=== PATIENT | female | born 1985 | race Two or more races ===

== ENCOUNTER 2021-11-07 07:04 | Outpatient (REF) | payer OTHER, SELFPAY ==
[2021-11-07 08:18] LABS: MANUAL DIFF FLAG NO
[2021-11-07 08:33] LABS: Basophils Percent Auto 0.3 % (0-2); Eosinophils Absolute Auto 0.2 X10*3/uL (0.0-0.4); Eosinophils Percent Auto 1.7 % (0-4); Hematocrit 45.4 % (37.0-47.0); Hemoglobin 14.5 g/dl (12.0-16.0); Imm Gran Abs Auto 0.01 X10*3/uL (0.00-0.03); Imm Gran Pct Auto 0.1 % (0.0-0.4); Lymphocytes Absolute Auto 2.2 X10*3/uL (1.2-4.9); Lymphocytes Percent Auto 25.5 % (20-40); Mean Corpuscular HGB Conc 31.9 g/dl (31.0-35.0); Mean Corpuscular Hemoglobin 28.7 pg (27.0-33.0); Mean Corpuscular Volume 89.7 fL (80.0-98.0); Monocytes Absolute Auto 0.4 X10*3/uL (0.1-1.2); Neutrophils Percent Auto 68.4 % (45-73); Platelet Count 233 X10*3/uL (160-400); Red Blood Count 5.06 X10*6/uL (4.20-5.50); Red Cell Distribution Width 12.2 % (11.0-16.0); White Blood Count 8.7 X10*3/uL (4.8-10.8)
[2021-11-07 09:03] LABS: Alanine Aminotransferase 91 U/L (0-31); Albumin Level 4.2 g/dL (3.5-5.0); Alkaline Phosphatase 95 U/L (39-117); Anion Gap 11 (12-20); Aspartate Amino Transferase 59 U/L (5-31); Bilirubin Total 0.7 mg/dL (0.0-1.0); Blood Urea Nitrogen 14 mg/dL (9-16); Calcium 9.5 mg/dL (8.4-10.2); Carbon Dioxide 25 mmol/L (22-29); Chloride 105 mmol/L (96-108); Cholesterol 172 mg/dL; Estimated Glomerular Filt Rate > 60; Gamma Glutamyl Transpeptidase 37 U/L (7-33); Glucose Fasting 182 mg/dL (60-99); HDL Cholesterol 36 mg/dL; LDL Cholesterol Calculated 113 mg/dl; Potassium 4.3 mmol/L (3.3-5.1); Sodium 137 mmol/L (135-145); Total Protein 7.5 g/dL (6.5-8.0); Triglycerides 117 mg/dL
[2021-11-07 09:24] LABS: Thyroid Stimulating Hormone 2.39 uIU/mL (0.32-4.0)
[2021-11-07 09:51] LABS: Creatinine Urine 187.09 mg/dL; Microalbum/Creatinine Ratio Ur 32.6 ug/mg cr
[2021-11-08 14:31] LABS: Anti Nuclear Antibody Screen NEGATIVE (NEGATIVE)
[2021-11-10 13:21] LABS: Alpha Fetoprotein 2.5 ng/mL
[2021-11-11 15:11] LABS: Mitochondrial Antibodies NEGATIVE (NEGATIVE)
[2021-11-12 13:21] LABS: Smooth Muscle Antibody <20 U (<20)
[2021-11-12 15:52] LABS: Glutamic acid decarboxylase Ab <5 IU/mL (<5)
[2021-11-15 22:57] LABS: Insulin Auto Antibody <0.4 U/mL (<0.4)
== END 2021-11-07 07:05 | disposition home or self-care (01) ==
LOC: HO.LAB 07:04
PROVIDERS: PCP Internal Medicine; Referring Provider Internal Medicine; Visit Provider Nurse Practitioner
DX: Z00.00 Encounter for general adult medical examination without abnormal findings (principal); E66.9 Obesity, unspecified; E11.9 Type 2 diabetes mellitus without complications; C91.01 Acute lymphoblastic leukemia, in remission; D64.9 Anemia, unspecified; R74.01 Elevation of levels of liver transaminase levels
CPT/HCPCS: 36415; 80053; 80061; 82043; 82105; 82977; 84443; 85025; 86015; 86038; 86039; 86255; 86256; 86337; 86341; 99202

== ENCOUNTER → 2021-11-14 13:57 | Outpatient (BNVA) | payer OTHER, SELFPAY | PROVIDERS: PCP Internal Medicine; Visit Provider Internal Medicine Endocrinology, Diabetes & Metabolism | DX: E11.65 Type 2 diabetes mellitus with hyperglycemia (principal) | CPT/HCPCS: 82947; 99202 ==

== ENCOUNTER 2021-12-24 09:01 | Outpatient (REF) | payer OTHER, SELFPAY ==
[2021-12-24 14:02] LABS: CT PCR NOT DETECTED (Not Detect.); NG PCR NOT DETECTED (Not Detect.)
[2021-12-27 14:45] LABS: HPV mRNA E6/E7 rflx Not Detected (Not Detected)
== END 2021-12-24 09:02 | disposition home or self-care (01) ==
LOC: HO.LAB 09:01
PROVIDERS: PCP Internal Medicine; Visit Provider Advanced Practice Midwife
DX: Z01.419 Encounter for gynecological examination (general) (routine) without abnormal findings (principal); Z11.51 Encounter for screening for human papillomavirus (HPV); Z11.3 Encounter for screening for infections with a predominantly sexual mode of transmission; Z11.8 Encounter for screening for other infectious and parasitic diseases; C91.01 Acute lymphoblastic leukemia, in remission; E11.9 Type 2 diabetes mellitus without complications; E66.3 Overweight; Z68.36 Body mass index [BMI] 36.0-36.9, adult
CPT/HCPCS: 87491; 87591; 87624; 88142

== ENCOUNTER → 2022-02-17 14:32 | Outpatient (BNVA) | payer OTHER, SELFPAY | PROVIDERS: PCP Internal Medicine; Visit Provider Internal Medicine Endocrinology, Diabetes & Metabolism | DX: E11.65 Type 2 diabetes mellitus with hyperglycemia (principal); Z79.84 Long term (current) use of oral hypoglycemic drugs | CPT/HCPCS: 82947; 99212 ==

== ENCOUNTER 2022-04-02 20:18 | Emergency (ER) | payer OTHER, SELFPAY ==
[2022-04-02 21:13] VITALS: BP 153/105; PULSE 95; RESP 16; TEMP 36.5; O2SAT 99; BMI 37.3
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
[2022-04-02] MEDS: Cyclobenzaprine HCl 10 MG TABLET PO (22:21)
[2022-04-02] MEDS: Ibuprofen 600 MG TABLET PO (22:21)
== END 2022-04-02 22:41 | disposition home or self-care (01) ==
PROVIDERS: Emergency Provider Emergency Medicine; PCP Internal Medicine
DX: Z04.1 Encounter for examination and observation following transport accident (principal); M54.6 Pain in thoracic spine
CPT/HCPCS: 99283; 99284

== ENCOUNTER → 2022-06-11 14:03 | Outpatient (BNVA) | payer OTHER, SELFPAY | PROVIDERS: PCP Internal Medicine; Visit Provider Registered Nurse Diabetes Educator | DX: E11.65 Type 2 diabetes mellitus with hyperglycemia (principal) | CPT/HCPCS: 99211 ==

== ENCOUNTER 2022-07-15 08:00 | Outpatient (REF) | payer OTHER, SELFPAY ==
[2022-07-15 09:02] LABS: Alanine Aminotransferase 39 U/L (0-31); Albumin Level 4.1 g/dL (3.5-5.0); Alkaline Phosphatase 76 U/L (39-117); Anion Gap 12 (12-20); Aspartate Amino Transferase 29 U/L (5-31); Bilirubin Total 0.7 mg/dL (0.0-1.0); Blood Urea Nitrogen 16 mg/dL (9-16); Calcium 9.2 mg/dL (8.4-10.2); Carbon Dioxide 26 mmol/L (22-29); Chloride 105 mmol/L (96-108); Cholesterol 121 mg/dL; Estimated Glomerular Filt Rate > 60; Glucose Fasting 128 mg/dL (60-99); HDL Cholesterol 37 mg/dL; LDL Cholesterol Calculated 71 mg/dl; Potassium 4.4 mmol/L (3.3-5.1); Sodium 139 mmol/L (135-145); Triglycerides 66 mg/dL
[2022-07-15 09:29] LABS: Estimated Average Glucose 120 mg/dL; Hemoglobin A1c % 5.8 %
[2022-07-15 10:02] LABS: Vitamin D 25-OH Total 29.7 ng/mL (>30)
[2022-07-15 10:28] LABS: Creatinine Urine 226.96 mg/dL; Microalbum/Creatinine Ratio Ur 10.1 ug/mg cr
== END 2022-07-15 08:01 | disposition home or self-care (01) ==
LOC: HO.LAB 08:00
PROVIDERS: PCP Internal Medicine; Visit Provider Internal Medicine
DX: E55.9 Vitamin D deficiency, unspecified (principal); E78.5 Hyperlipidemia, unspecified; E11.40 Type 2 diabetes mellitus with diabetic neuropathy, unspecified; E11.65 Type 2 diabetes mellitus with hyperglycemia
CPT/HCPCS: 36415; 80053; 80061; 82043; 82306; 83036

== ENCOUNTER → 2022-07-16 14:06 | Outpatient (BNVA) | payer OTHER, SELFPAY | PROVIDERS: PCP Internal Medicine; Visit Provider Registered Nurse Diabetes Educator | DX: E11.65 Type 2 diabetes mellitus with hyperglycemia (principal) | CPT/HCPCS: 99211 ==

== ENCOUNTER 2023-10-19 08:48 | Outpatient (AMB) | payer OTHER, SELFPAY ==
--- NOTE | 2023-10-19 09:16 | A.OFFVIS_ITS ---
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 Accompanied by: Self / Same As Patient Allergies No Known Allergies Allergy (Verified 10/28/22 09:34) HPI Comprehensive Diabetes Asmnt Most Recent Diabetes Results: Microalb/Creat Ratio 10.1 ug/mg cr 07/15/22 Cholesterol 121 mg/dL 07/15/22 HDL Cholesterol 37 mg/dL 07/15/22 Triglycerides 66 mg/dL 07/15/22 Creatinine 0.78 mg/dL (0.5-1.4) 07/15/22 Blood Urea Nitrogen 16 mg/dL (9-16) 07/15/22 Sodium 139 mmol/L (135-145) 07/15/22 Potassium 4.4 mmol/L (3.3-5.1) 07/15/22 Chloride 105 mmol/L (96-108) 07/15/22 Carbon Dioxide 26 mmol/L (22-29) 07/15/22 Calcium 9.2 mg/dL (8.4-10.2) 07/15/22 AST 29 U/L (5-31) 07/15/22 ALT 39 U/L (0-31) H 07/15/22 Total Protein 7.0 g/dL (6.5-8.0) 07/15/22 Albumin 4.1 g/dL (3.5-5.0) 07/15/22 [facility] Medical History Acute lymphocytic leukemia in remission Diabetes mellitus Elevated blood pressure reading Hyperlipidemia LDL goal <70 Mild intermittent asthma in adult without complication Obesity, Class II, BMI 35-39.9, isolated Physical exam Skin lesion Transaminitis Surgical History History of biopsy Family History Mother HIV disease Father HIV disease Social History Housing: Apartment Alcohol intake: current Alcohol intake frequency: holidays/special occasions only Alcohol type: hard liquor Patient Tobacco Use Status: Never used Tobacco e-Cigarette/Vaping Use: Never Used Second Hand Smoke Exposure: No service: No Current occupational status: employed Current occupational exposures/hazards: No Sexual orientation: Straight/Heterosexual Gender identity: Female Cognitive needs: No Hearing needs: No Vision needs: No Assessment & Plan Assessment & Plan (1) Diabetes mellitus: Code(s): E11.9 - Type 2 diabetes mellitus without complications Qualifiers: Diabetes mellitus type: type 2 Diabetes mellitus retirement insulin use: without retirement use Diabetes mellitus complication status: with hyperglycemia Qualified Code(s): E11.65 - Type 2 diabetes mellitus with hyperglycemia Plan: Learning objectives: The patient was provided with verbal and written education on the following topics as outlined below. The patient met all learning objectives and was able to verbalize understanding and provide teach back of education topics discussed . The patient was provided with the opportunity to ask questions and all questions were answered. Patient Assessment Assess patient education level/literacy/barriers Patient questions/concerns, patient did not bring meter to today's visit. Patient reports she has not been able to obtain Trulicity 1.5 mg for approximately 2 months. Patient is here today to discuss alternatives to Trulicity Discussed with patient action of Ozempic 0.25 mg, Mounjaro 2.5 mg, discussed with patient common side effects. Recommended she discuss medication changes including increasing metformin 500 mg b.i.d. to a 1000 mg b.i.d. at next visit with PCP Exercise Medical clearance Effect of exercise on blood sugar Start slowly and gradually increase pace/duration over time Goal amount of exercise Checking blood glucose/have a source of carbs with you Medications (If applicable) * Name of medication * Dosing/administration instructions * Mechanism of action * Potential side effects * Potential adverse reaction and appropriate treatment * Review onset, peak, duration Assess for concerns re: insurance coverage, cost, barriers to compliance Insulin/Injectables (If applicable) * Storage/care of insulin * Injection sites * Site rotation * Onset, peak, duration * Drawing up insulin * Injecting insulin/other injectables * Sharps disposal Continuous blood glucose monitoring (if applicable) Hypoglycemia and Hyperglycemia * Signs and symptoms * Causes * Treatment * Preventing hypoglycemia * When to seek medical attention Medical alert bracelet Lifestyle * Work * Travel * Stress management * Problem solving Know your goals * A1C * Blood sugar targets * Blood pressure * Cholesterol/LDL Urine microalbumin New Goal:? Patient will have A1c drawn at PCP in October 2023 Educational Materials: The patient was provided with the following written educational materials: A ADA diabetes screening recommendations, target goal handouts in Urdu Patient Response to instructions: Comprehension of Instructions: good Readiness to make changes: Contemplation How confident they feel about making changes: Good Patient Instructions: Incluir actividad diaria regular. ADA recomienda 30 minutos de ejercicio 5 d?as a la semana. P?rdida de peso, hable con el PCP o el cardi?logo antes de comenzar un nuevo plan. Mida el nivel de az?car en la april seg?n las indicaciones; Ayuno y comida m?s jarad de 2hpp. Observe las tendencias en los resultados. Utilice los resultados y eval?e c?mo los alimentos, la actividad f?kaur y los medicamentos afectan los resultados de az?car en la april. Lleve el gluc?metro o CGM a la pr?xima visita. Conocer los medicamentos para la diabetes, man acci?n, los efectos secundarios, la eficacia, la toxicidad, la dosis prescrita, el momento y la frecuencia de administraci?n apropiados, el efecto de las dosis olvidadas y retrasadas y las instrucciones de almacenamiento, viaje y seguridad. T?cnicas de resoluci?n de problemas para el seguimiento de episodios de hipo/hiperglucemia y tratamientos. Reducir los comportamientos de reducci?n de riesgos, dejar de fumar, ex?menes regulares de ojos, pies y dentales. Coding Level of Care Code Est Pt Level 1 (21634) Diagnoses Type 2 diabetes mellitus with hyperglycemia, without long-term current use of insulin E11.65 Diabetes mellitus type: type 2 Diabetes mellitus long term care administrator insulin use: without retirement use Diabetes mellitus complication status: with hyperglycemia
== END 2023-10-19 09:18 | disposition home or self-care (01) ==
PROVIDERS: PCP Internal Medicine; Visit Provider Registered Nurse Diabetes Educator
DX: E11.65 Type 2 diabetes mellitus with hyperglycemia (principal)

== ENCOUNTER → 2023-10-19 08:48 | Outpatient (BNVA) | payer OTHER, SELFPAY | PROVIDERS: PCP Internal Medicine; Visit Provider Registered Nurse Diabetes Educator | DX: E11.65 Type 2 diabetes mellitus with hyperglycemia (principal) | CPT/HCPCS: 99211 ==

== ENCOUNTER 2023-11-04 08:27 | Outpatient (AMB) | payer OTHER, SELFPAY ==
[2023-11-04 08:41] VITALS: BP 122/84; BMI 38.6
--- NOTE | 2023-11-04 08:41 | MHC.PC.OV ---
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 Accompanied by: Self / Same As Patient Allergies No Known Allergies Allergy (Verified 11/04/23 08:48) Medication List - Last Reconciled 11/04/23 by Lidia Allan MD albuterol sulfate 90 mcg/actuation (ProAir RespiClick) 2 inhalations inhalation Q6H PRN 30 days albuterol sulfate 2.5 mg (3 mL) inhalation Q4-6H PRN 30 days atorvastatin 10 mg PO BEDTIME 90 days blood sugar diagnostic (FreeStyle Lite Strips) Use 1 test strip once a day blood-glucose meter (FreeStyle Lite Meter kit) As directed dulaglutide (Trulicity) 1.5 mg (0.5 mL) subcut QWEEK lancets (FreeStyle Lancets) Use 1 lancet once a day lisinopril 2.5 mg PO DAILY 90 days metformin 500 mg PO BID 90 days multivitamin 1 tab PO DAILY nebulizers (AeroEclipse II Nebulizer) As directed Ventolin HFA 90 mcg/actuation (albuterol sulfate) 2 puffs inhalation Q6H PRN 30 days NS Tobacco use date assessed: 11/04/23 Dental Screening Dental Screen Date: 11/04/23 Did you have a dental visit in the last 12 months?: Yes Did you have a dental problem in the last 6 months where you did not have access to dental care?: No Was dental information given to patient?: Patient has dentist HPI HPI Comments History of Present Illness Details This is a 38-year-old female with diabetes mellitus type 2 and acute lymphocytic leukemia in remission since 18/08 that comes for her physical exam. A1c not on goal and she has been out of Trulicity for about 2 months. She has been using Trulicity for about a year. I will increase metformin and start her on Mounjaro. Diabetic eye exam was August 2023 and showed no diabetic retinopathy as per patient. Last Pap smear was 2021 and was normal. Leukemia is follow by Hematology-Oncology. She does not know what type of treatment did she have while she had it. She is obese with a BMI of 38.6 and declines weight loss surgery. Was advised to diet and exercise. [facility] Medical History (Updated 11/04/23 @ 08:58 by Lidia Allan MD) Hyperlipidemia LDL goal <70 Diabetes mellitus Physical exam Transaminitis Mild intermittent asthma in adult without complication Skin lesion Elevated blood pressure reading Acute lymphocytic leukemia in remission Obesity, Class II, BMI 35-39.9, isolated Surgical History History of biopsy Family History Mother HIV disease Father HIV disease Social History Housing: Apartment Alcohol intake: current Alcohol intake frequency: holidays/special occasions only Alcohol type: hard liquor Patient Tobacco Use Status: Never used Tobacco e-Cigarette/Vaping Use: Never Used Second Hand Smoke Exposure: No service: No Current occupational status: employed Current occupational exposures/hazards: No Sexual orientation: Straight/Heterosexual Gender identity: Female Cognitive needs: No Hearing needs: No Vision needs: No Questionnaire PHQ-9 Over the last 2 weeks, how often have you been bothered by any of the following problems? 1. Little interest or pleasure in doing things: not at all 2. Feeling down, depressed, or hopeless: not at all 3. Trouble falling or staying asleep, or sleeping too much: not at all 4. Feeling tired or having little energy: not at all 5. Poor appetite or overeating: not at all 6. Feeling bad about yourself - or that you are a failure or have let yourself or your family down: not at all 7. Trouble concentrating on things, such as reading the newspaper or watching television: not at all 8. Moving or speaking so slowly that other people could have noticed. Or the opposite - being so fidgety or restless that you have been moving around a lot more than usual: not at all 9. Thoughts that you would be better off or of hurting yourself in some way: not at all Total score: 0 Depression Screening Interpretation: Negative Depression Screening Done: Yes 32914 - PHQ-9 Billing: Yes Source: Developed by Drs. Margarito L. SimonPaula lozoya Kurt Kroenke and colleagues, with an educational mckay from [employer]. Thrive Questionnaire Date Thrive assessed: 11/04/23 I am a: Patient What is your living situation today?: I have a steady place to live Within the past 12 months, did the food you bought not last and you didn't have the money to get more?: Never true Within the past 12 months, did you worry whether your food would run out before you got money to buy more?: Never true Do you have trouble paying for medicines?: No Do you have trouble getting transportation to medical appointments?: No Do you have trouble paying your heating and electricity bill?: No Do you have trouble taking care of your child, family member or friend?: No Do you have trouble with day-to-day activities such as bathing, preparing meals, shopping, managing finances, etc.?: No Are you currently unemployed and looking for a job?: No Are you interested in more education?: No Please select the resources that you would like help with: None Currently or been in a relationship where the following occur: no concerns reported THRIVE Score: 0 AUDIT C Alcohol Use Questionnaire (AUDIT-C) 1. How often do you have a drink containing alcohol?: Monthly or less 2. How many drinks containing alcohol do you have on a typical day when you are drinking?: 1 or 2 3. How often do you have six or more drinks on one occasion?: Never Total Score: 1 Score Reviewed/Action Taken: No MILLER-7 AMB Questionnaire MILLER-7 Date MILLER - 7 assessed: 11/04/23 Feeling nervous, anxious, or on edge: 0 = Not at all Not being able to stop or control worryin = Not at all Worrying too much about different things: 0 = Not at all Trouble relaxin = Not at all Being so restless that it is hard to sit still: 0 = Not at all Becoming easily annoyed or irritable: 0 = Not at all Feeling afraid as if something awful might happen: 0 = Not at all Total MILLER-7 score (0-4 normal; 5-9 mild; 10-14 moderate; 15-21 severe): 0 Source: Developed by Paula Momin Kurt Kroenke and colleagues, with an educational mckay from [employer]. MILLER-7 Assessment Billing MILLER-7 Assessment Tool: MILLER-7 Assessment 02051 Review of Systems Const All systems reviewed & are unremarkable except as noted in HPI and below Eyes Reports no additional complaints, Denies change in vision and Denies other visual disturbances Card Denies chest pain at rest, Denies chest pain with activity, Denies edema, Denies irregular heart rhythm, Denies claudication, Denies dyspnea, Denies dyspnea on exertion, Denies orthopnea, Denies paroxysmal nocturnal dyspnea and Denies slow heart rate Resp Denies cough, Denies dyspnea and Denies dyspnea on exertion GI Denies abdominal pain, Denies change in bowel habits, Denies excessive flatus, Denies nausea and Denies vomiting Denies urinary incontinence, Denies urinary hesitancy and Denies urinary urgency Musc Denies abnormal gait, Denies atrophy, Denies deformity and Denies limited range of motion Skin/Breast Denies bleeding lesions, Denies changing lesions and Denies rash Neuro Denies abnormal gait, Denies behavioral changes, Denies confusion and Denies lack of coordination Psych Denies behavioral changes and Denies confusion Physical exam (Primary Care) Vital Signs: Last Vital Signs BP 122/84 11/04/23 08:41 BMI result Body Mass Index 38.6 Tobacco/Smoking Status: Tobacco use Status Tobacco use date assessed 11/04/23 11/04/23 08:45 Patient Tobacco Use Status Never used Tobacco 11/04/23 08:45 e-Cigarette/Vaping Use Never Used 11/04/23 08:45 PHQ-9: PHQ-9 Score PHQ-9: Total score 0 11/04/23 08:46 Depression Screening Interpretation: Negative Thrive Assessment: Date of Thrive Assessment Date Thrive assessed 11/04/23 11/04/23 08:46 Currently or been in a relationship where the following occur: no concerns reported Const General: No confusion Orientation/consciousness: patient oriented x3 and No confusion HENMT Head: Yes normal to inspection, Yes normocephalic and Yes atraumatic Ears: external ears normal Eyes General: appearance normal, both eyes and all related structures Eyelids: Yes eyelids normal Conjunctivae: conjunctivae normal Neck Neck: Yes normal visual inspection and Yes supple Resp Effort & Inspection: normal respiratory effort Auscultation: clear to auscultation bilaterally Cardio Jugular venous distension: no JVD Rate: regular rate Rhythm: regular rhythm Heart sounds: S1 normal heart sound present and S2 normal heart sound present GI Inspection: Yes normal to inspection Palpation (GI): Soft to palpation and nontender Auscultation: normal bowel sounds Skin General skin exam: no rashes or lesions noted Neuro General: patient oriented x3, no focal motor deficits and No confusion Extrem General: Yes full ROM Psych Appearance: grossly normal Results AMB Hemoglobin A1c AMB Hemoglobin A1c 8.1 % Last Edit by HAYLEE Power on 11/04/23 08:48 Assessment and Plan Assessment & Plan (1) Physical exam: Code(s): Z00.00 - Encounter for general adult medical examination without abnormal findings Plan: Repeat in a year. (2) Diabetes mellitus: Code(s): E11.9 - Type 2 diabetes mellitus without complications Qualifiers: Diabetes mellitus type: type 2 Diabetes mellitus marine oil terminal superintendent insulin use: without shelter use Diabetes mellitus complication status: with hyperglycemia Qualified Code(s): E11.65 - Type 2 diabetes mellitus with hyperglycemia Plan: Increase metformin. Discontinue Trulicity due to being out of stock. Start Mounjaro. A1c goal is equal or less than 7%. (3) Acute lymphocytic leukemia in remission: Comment: In remission since 2011 Code(s): C91.01 - Acute lymphoblastic leukemia, in remission Plan: Follow-up with Hematology-Oncology. Orders: Orders Comprehensive [place]. Panel Fast Today E11.65 - Type 2 diabetes mellitus with hyperglycemia Microalbumin, Random (w Creat) Today E11.65 - Type 2 diabetes mellitus with hyperglycemia, E11.9 - Type 2 diabetes mellitus without complications AMB Hemoglobin A1c Today E11.9 - Type 2 diabetes mellitus without complications Lipid Panel Today E11.65 - Type 2 diabetes mellitus with hyperglycemia, E78.5 - Hyperlipidemia, unspecified Complete Blood Count Auto Diff Today C91.01 - Acute lymphoblastic leukemia, in remission Referrals Pain Management Referral M54.50 - Low back pain, unspecified Medications: New metformin 1,000 mg PO BID 90 days 180 tabs 1RF E11.9 - Type 2 diabetes mellitus without complications tirzepatide (Mounjaro) 2.5 mg (0.5 mL) subcut QWEEK 4 weeks 2 mL 0RF E11.65 - Type 2 diabetes mellitus with hyperglycemia Discontinued metformin Discontinued Reason: Patient Completed Course 500 mg PO BID 90 days 180 tabs 1RF E11.9 - Type 2 diabetes mellitus without complications dulaglutide (Trulicity) Discontinued Reason: No Longer Medically Relevant 1.5 mg (0.5 mL) subcut QWEEK 2 mL 1RF Coding Level of Care Code Est Pt Prev Care 18-39y(13779) Diagnoses Physical exam Z00.00 Type 2 diabetes mellitus with hyperglycemia, without long-term current use of insulin E11.65 Diabetes mellitus type: type 2 Diabetes mellitus shelter insulin use: without marine oil terminal superintendent use Diabetes mellitus complication status: with hyperglycemia Acute lymphocytic leukemia in remission C91.01 Additional Codes MILLER-7 Assessment Billing - MILLER-7 Assessment Tool: MILLER-7 Assessment [id number] ([id number]) Time Spent (min) 35
== END 2023-11-04 09:03 | disposition home or self-care (01) ==
PROVIDERS: Visit Provider Internal Medicine
DX: Z00.00 Encounter for general adult medical examination without abnormal findings (principal); E11.65 Type 2 diabetes mellitus with hyperglycemia; C91.01 Acute lymphoblastic leukemia, in remission; E11.9 Type 2 diabetes mellitus without complications
CPT/HCPCS: 83036; 99395

== ENCOUNTER 2024-04-09 06:02 | Emergency (ER) | payer OTHER, SELFPAY ==
[2024-04-09 06:04] VITALS: BP 150/94; PULSE 90; RESP 18; TEMP 36.4; O2SAT 99; BMI 41.0
--- NOTE | 2024-04-09 06:34 | ED.GENADULT ---
HPI - General Adult General Chief complaint: Ear Problems Stated complaint: feels something inside of ear Time Seen by Provider: 04/09/24 06:30 Source: patient Mode of arrival: ambulatory Limitations: no limitations History of Present Illness ED Provider: Danelle Goldstein PA-C HPI narrative: Patient is a 39 year old assigned female at with a history of DM presenting to the emergency department today with concerns of something crawling in her right ear. Patient states that approximately 5 minutes prior to arrival she felt something crawl into her right ear and can feel it still in her ear. Patient denies any dizziness, lightheadedness, abdominal pain, nausea, vomiting, fever, chills, blurry vision, double vision, loss of vision, chest pain, difficulty breathing, shortness of breath, back pain, night sweats, pain with urination, increased urinary frequency, increased urinary urgency, blood in her urine or stool, syncope or a near syncopal episode, recent trauma or falls, bowel incontinence, bladder incontinence, or any other complaints at this time. Onset (ago): minute(s) Location: right (ear) Radiation: non-radiation Severity: mild Relieving factors: none Exacerbating factors: none Associated symptoms: denies other symptoms Treatments prior to arrival: none Related Data Home Medications ?Medication ?Instructions ?Recorded ?Confirmed multivitamin 1 tab PO DAILY 09/01/21 11/04/23 Previous Rx's ?Medication ?Instructions ?Recorded albuterol sulfate 90 mcg/actuation 2 inh inhalation Q6H PRN shortness 05/14/21 breath activated powder inhaler of breath or wheezing 30 days #1 ea (ProAir RespiClick) lancets 28 gauge (FreeStyle #100 ea 09/30/21 Lancets) blood-glucose meter (FreeStyle #1 ea 02/03/22 Lite Meter kit) nebulizers (AeroEclipse II #1 ea 06/22/22 Nebulizer) blood sugar diagnostic (FreeStyle #50 ea 01/18/23 Lite Strips) atorvastatin 10 mg tablet 10 mg PO BEDTIME 90 days #90 tabs 04/02/23 Ventolin HFA 90 mcg/actuation 2 puff inhalation Q6H PRN 10/11/23 aerosol inhaler (albuterol sulfate) shortness of breath or wheezing 30 days #18 grams albuterol sulfate 2.5 mg/3 mL 2.5 mg (3 mL) inhalation Q4-6H PRN 10/11/23 (0.083 %) solution for nebulization shortness of breath or wheezing 30 days #75 mL metformin 1,000 mg tablet 1,000 mg PO BID 90 days #180 tabs 11/04/23 tirzepatide 5 mg/0.5 mL 5 mg (0.5 mL) subcut QWEEK 30 days 11/30/23 subcutaneous pen injector #2.5 mL (Benunregan) lisinopril 2.5 mg tablet 2.5 mg PO DAILY 90 days #90 tabs 12/26/23 amoxicillin 875 mg-potassium 1 tab PO BID 7 days #14 tabs 04/09/24 clavulanate 125 mg tablet Allergies Allergy/AdvReac Type Severity Reaction Status Date / Time No Known Allergies Allergy Verified 04/09/24 06:04 Review of Systems Constitutional: Constitutional: Reports no additional constitutional complaints, Denies chills, Denies fever(s) and Denies night sweats Eyes: Eyes: Reports no additional eye complaints, Denies blurry vision, Denies change in vision, Denies diplopia, Denies eye discharge, Denies loss of vision and Denies eye pain ENT: Denies dizziness Comments: bug in right ear Cardiovascular: Cardiovascular: Reports no additional cardiovascular complaints, Denies chest pain, Denies lightheadedness, Denies Loss of Consciousness and Denies dyspnea Respiratory: Respiratory: Reports no additional respiratory complaints and Denies dyspnea Gastrointestinal: Gastrointestinal: Reports no additional gastrointestinal complaints, Denies abdominal pain, Denies melena, Denies hematochezia, Denies change in bowel habits and Denies change in stool character Genitourinary: Genitourinary: Denies hematuria, Denies urinary frequency, Denies dysuria, Denies urinary incontinence, Denies urinary hesitancy and Denies urinary urgency Musculoskeletal: Musculoskeletal: Reports no additional musculoskeletal complaints, Denies numbness and Denies tingling Neurologic: Denies dizziness, Denies loss of vision, Denies numbness and Denies tingling Psychiatric: Psychiatric: Reports no additional psychiatric complaints Endocrine: Endocrine: Reports no additional endocrine complaints Hematologic/Lymphatic: Hematologic/Lymphatic: Reports no additional hematologic/lymphatic complaints Allergic/Immunologic: Allergic/Immunologic: Reports no additional allergic/immunologic complaints PMFSH Past Medical History Attestation statement: The following information was validated with the patient. Source: old records reviewed and nursing notes reviewed Medical History Hyperlipidemia LDL goal <70 Diabetes mellitus Physical exam Transaminitis Mild intermittent asthma in adult without complication Skin lesion Elevated blood pressure reading Acute lymphocytic leukemia in remission Obesity, Class II, BMI 35-39.9, isolated Surgical History History of biopsy Family History Family History Mother HIV disease Father HIV disease Social History Social History Housing: Apartment Alcohol intake: current Alcohol intake frequency: holidays/special occasions only Alcohol type: hard liquor Patient Tobacco Use Status: Never used Tobacco e-Cigarette/Vaping Use: Never Used Second Hand Smoke Exposure: No Advance Directives: No Advance Directives Information Provided: No Do you have a plan to hurt others: No Plan service: No Current occupational status: employed Current occupational exposures/hazards: No Sexual orientation: Straight/Heterosexual Gender identity: Female Cognitive needs: No Hearing needs: No Vision needs: No Physical Exam ED Vital Signs: Vital Signs - 24 hr 04/09/24 06:04 04/09/24 08:15 Temperature 97.6 F 97.9 F Pulse Rate 90 82 Respiratory Rate 18 16 Blood Pressure 150/94 H 133/86 Pulse Oximetry 99 99 Oxygen Delivery Method Room Air Room Air BMI result Body Mass Index 41.0 Const General: cooperative, no acute distress, alert and awake Nutritional Appearance: well nourished Orientation/consciousness: patient oriented x3 Limitations: no limitations [facility] Head: Yes normal to inspection and Yes atraumatic Ears: hearing grossly normal bilaterally, external ears normal and Abnormal EAC present foreign body (bug with legs facing out towards canal and back against ear drum) on the right General nose exam: Normal external nose present, no nasal discharge noted and no epistaxis Face and sinus: Yes normal facial exam, No abrasion and No laceration Mouth: Normal oral and palatal mucosa present, no drooling and no muffled voice Eyes General: appearance normal, both eyes and all related structures Periorbital: periorbital findings normal Eyelids: Yes eyelids normal Conjunctivae: conjunctivae normal Pupils: Equal, round and reactive pupils present EOM: EOMs intact bilaterally Neck Neck: Yes normal visual inspection, Yes full ROM and Yes no lymphadenopathy Chest Chest palpation & inspection: normal inspection of the chest Resp Effort & Inspection: normal respiratory effort and able to speak in complete sentences GI Inspection: Yes normal to inspection Neuro General: patient oriented x3 and moves all extremities Cranial nerves: Yes Equal, round and reactive pupils present Cognition (Neuro): normal cognition Extrem General: Yes normal to inspection, Yes full ROM and Yes capillary refill normal Psych Appearance: grossly normal Mental Status: mental status grossly normal Affect: normal affect Attitude: cooperative Thought process: Normal thought process present Thought content: Normal thought content present Insight: Good insight present (Psych) Medications Administered Discontinued Medications Generic Name Dose Route Start Last Admin Trade Name Freq PRN Reason Stop Dose Admin Mineral Oil 2 ml 04/09/24 06:40 04/09/24 08:15 Mineral Oil 10 Ml Vial MISCELLANE 04/09/24 06:41 2 ml ONCE ONE Administration Procedures FB Removal Ear Location: ear canal (R) Foreign Body Suspected: insect TM intact pre-procedure: yes If Insect Suspected: ear canal instilled with mineral oil Foreign Body Removed: yes Foreign Body Removal Technique: instrumentation Tympanic Membrane Intact Post Procedure: Yes Patient Tolerated Procedure: well Complications: none Medical Decision Making Medical Decision Making MDM Narrative: Patient is a 39 year old assigned female at with a history of DM presenting to the emergency department today with a bug in her right ear. Patient's physical exam confirmed the presence of a small bug in her right ear. I explained my physical exam findings to the patient. I answered all questions asked by the patient. The bug was removed, per procedure note, without incident. I stressed the importance of the patient taking her medication as directed (either prescribed or as the over the counter packaging recommends). I stressed the importance of the patient following up with her primary care provider. I stressed the importance of the patient returning to the emergency department immediately if her symptoms were to worsen or if she were to develop any dizziness, shortness of breath, difficulty breathing, chest pain, blurry vision, loss of vision, nausea, vomiting, abdominal pain, fever, chills, back pain, or any other complaints. Patient verbalized agreement and understanding with this treatment plan and discharge. Differential Diagnosis Differential Diagnoses: The differential diagnosis associated with the presentation includes Bug in right ear Admission/Observation Consideration of admission/observation: Escalation of care including admission/observation considered Patient would have been admitted to the hospital had her clinical presentation warranted hospital admission. Prescription Management I considered prescription management with: Antibiotic (patient prescribed a prophylactic antibiotic given clinical presentation and DM status) Chronic Conditions Patient?s care impacted by: Diabetes Discharge Plan Discharge Clinical Impression: Foreign body in ear Patient Disposition: Home, Self-Care Instructions: Ear Foreign Body (ED) Additional Instructions: Follow up with your primary care provider. Return to the emergency department immediately if your symptoms worsen or if you develop any dizziness, shortness of breath, difficulty breathing, chest pain, blurry vision, loss of vision, nausea, vomiting, abdominal pain, fever, chills, back pain, or any other complaints. Prescriptions: New amoxicillin-pot clavulanate 875-125 mg tablet 1 tab PO BID 7 Days Qty: 14 0RF No Action (DME) blood-glucose meter [FreeStyle Lite Meter] Kit See Rx Instructions .Route Qty: 1 0RF Rx Instructions: As directed (DME) FreeStyle Lite Strips Strip See Rx Instructions .Route Qty: 50 6RF Rx Instructions: Use 1 test strip once a day atorvastatin 10 mg tablet 10 mg PO BEDTIME 90 Days Qty: 90 3RF albuterol sulfate 2.5 mg /3 mL (0.083 %) solution for nebulization 2.5 mg inhalation Q4-6H PRN (Reason: shortness of breath or wheezing) 30 Days Qty: 75 2RF albuterol sulfate [Ventolin HFA] 90 mcg/actuation HFA aerosol inhaler 2 puff inhalation Q6H PRN (Reason: shortness of breath or wheezing) 30 Days Qty: 18 1RF Mounjaro 5 mg/0.5 mL pen injector 5 mg subcut QWEEK 30 Days Qty: 2.5 0RF lisinopril 2.5 mg tablet 2.5 mg PO DAILY 90 Days Qty: 90 1RF multivitamin Tablet 1 tab PO DAILY (DME) lancets [FreeStyle Lancets] 28 gauge misc See Rx Instructions .Route Qty: 100 3RF Rx Instructions: Use 1 lancet once a day ProAir RespiClick 90 mcg/actuation aerosol powdr breath activated 2 inh inhalation Q6H PRN (Reason: shortness of breath or wheezing) 30 Days Qty: 1 0RF (DME) AeroEclipse II Nebulizer Misc See Rx Instructions .Route Qty: 1 0RF Rx Instructions: As directed metformin 1,000 mg tablet 1,000 mg PO BID 90 Days Qty: 180 1RF Referrals: Lidia June MD [Primary Care Provider] - Interventions: ED Discharge Assessment Last Done: 04/09/24 08:15 Discharge Date/Time: 04/09/24 08:18 Print Language: Albanian
--- NOTE | 2024-04-09 06:55 | PC.NURSE ---
Handoff report to Liza MEEK
[2024-04-09 08:15] VITALS: BP 133/86; PULSE 82; RESP 16; TEMP 36.6; O2SAT 99
== END 2024-04-09 08:18 | disposition home or self-care (01) ==
PROVIDERS: Emergency Provider Emergency Medicine; PCP Internal Medicine
DX: T16.1XXA Foreign body in right ear, initial encounter (principal); H92.01 Otalgia, right ear; W44.F4XA Insect entering into or through a natural orifice, initial encounter; Y93.89 Activity, other specified; Y92.89 Other specified places as the place of occurrence of the external cause; Y99.8 Other external cause status
CPT/HCPCS: 69200; 99284

== ENCOUNTER 2024-12-28 13:52 | Outpatient (AMB) | payer OTHER, SELFPAY ==
--- NOTE | 2024-12-28 13:57 | A.OFFPC_ITS ---
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 Accompanied by: Self / Same As Patient Allergies No Known Allergies Allergy (Verified 12/28/24 14:07) Medication List - Last Reconciled 12/28/24 by Lidia Allan MD albuterol sulfate 90 mcg/actuation (ProAir RespiClick) 2 inhalations inhalation Q6H PRN 30 days albuterol sulfate 2.5 mg (3 mL) inhalation Q4-6H PRN 30 days atorvastatin 10 mg PO BEDTIME 90 days blood sugar diagnostic (FreeStyle Lite Strips) Use 1 test strip once a day blood-glucose meter (FreeStyle Lite Meter kit) As directed lancets (FreeStyle Lancets) Use 1 lancet once a day lisinopril 2.5 mg PO DAILY 90 days metformin 1,000 mg PO BID 90 days multivitamin 1 tab PO DAILY nebulizers (AeroEclipse II Nebulizer) As directed Ventolin HFA 90 mcg/actuation (albuterol sulfate) 2 puffs inhalation Q6H PRN 30 days NS Tobacco use date assessed: 12/28/24 Dental Screening Dental Screen Date: 12/28/24 Did you have a dental visit in the last 12 months?: Yes Did you have a dental problem in the last 6 months where you did not have access to dental care?: No Was dental information given to patient?: Patient has dentist HPI HPI Comments History of Present Illness Details The patient is a 39-year-old female presenting for an annual physical examination and updating vaccinations. The patient reports having Type 2 Diabetes Mellitus, diagnosed previously with an A1c of 11, indicating poor glycemic control. The patient acknowledges not actively managing her diabetes due to a lack of motivation and a difficult past year. Medications for diabetes include an insulin pump, occasional forgetting of oral medication named Farming, presumed to be metformin, and previous use of Trulicity, which was discontinued. The pharmacy did not authorize the prescribed medication Mounjaro due to the need for additional evidence. The patient has a past medical history of Acute Lymphocytic Leukemia, currently in remission since 2001, under periodic follow-up with hematology. She also has diagnosed hyperlipidemia managed with atorvastatin 10 mg and hypertension managed with lisinopril 2.5 mg daily. Socially, she discussed significant emotional stress due to familial issues, specifically the recent loss of both parents, who had no relationship and both had HIV. The mother reportedly by suicide. 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 - Continued lipid management with atorva statin [facility] Medical History Hyperlipidemia LDL goal <70 Diabetes mellitus Physical exam Transaminitis Mild intermittent asthma in adult without complication Skin lesion Elevated blood pressure reading Acute lymphocytic leukemia in remission Obesity, Class II, BMI 35-39.9, isolated Surgical History History of biopsy Family History (Updated 12/28/24 @ 14:15 by Lidia Allan MD) Mother HIV disease Father HIV disease Social History Housing: Apartment Alcohol intake: current Alcohol intake frequency: holidays/special occasions only Alcohol type: hard liquor Patient Tobacco Use Status: Never used Tobacco e-Cigarette/Vaping Use: Never Used Second Hand Smoke Exposure: No service: No Current occupational status: employed Current occupational exposures/hazards: No Sexual orientation: Straight/Heterosexual Gender identity: Female Cognitive needs: No Hearing needs: No Vision needs: No Questionnaire PHQ-9 Over the last 2 weeks, how often have you been bothered by any of the following problems? 1. Little interest or pleasure in doing things: not at all 2. Feeling down, depressed, or hopeless: several days 3. Trouble falling or staying asleep, or sleeping too much: not at all 4. Feeling tired or having little energy: several days 5. Poor appetite or overeating: not at all 6. Feeling bad about yourself - or that you are a failure or have let yourself or your family down: not at all 7. Trouble concentrating on things, such as reading the newspaper or watching television: not at all 8. Moving or speaking so slowly that other people could have noticed. Or the opposite - being so fidgety or restless that you have been moving around a lot more than usual: not at all 9. Thoughts that you would be better off or of hurting yourself in some way: not at all Total score: 2 Depression Screening Interpretation: Negative Depression Screening Done: Yes 09187 - PHQ-9 Billing: Yes Source: Developed by Drs. Margarito Montes, Paula Hyman, Esau Cortes and colleagues, with an educational mckay from [employer]. Thrive Questionnaire Date Thrive assessed: 12/27/24 I am a: Patient What is your living situation today?: I have a steady place to live Within the past 12 months, did the food you bought not last and you didn't have the money to get more?: Never true Within the past 12 months, did you worry whether your food would run out before you got money to buy more?: Never true Do you have trouble paying for medicines?: No Do you have trouble getting transportation to medical appointments?: I choose not to answer this question Do you have trouble paying your heating and electricity bill?: No Do you have trouble taking care of your child, family member or friend?: I choose not to answer this question Do you have trouble with day-to-day activities such as bathing, preparing meals, shopping, managing finances, etc.?: No Are you currently unemployed and looking for a job?: No Are you interested in more education?: No Please select the resources that you would like help with: None Currently or been in a relationship where the following occur: No concerns reported THRIVE Score: 0 AUDIT C Alcohol Use Questionnaire (AUDIT-C) 1. How often do you have a drink containing alcohol?: Monthly or less 2. How many drinks containing alcohol do you have on a typical day when you are drinking?: 1 or 2 3. How often do you have six or more drinks on one occasion?: Never Total Score: 1 Score Reviewed/Action Taken: No MILLER-7 AMB Questionnaire MILLER-7 Date MILLER - 7 assessed: 12/28/24 Feeling nervous, anxious, or on edge: 1 = Several days Not being able to stop or control worryin = Not at all Worrying too much about different things: 1 = Several days Trouble relaxin = Several days Being so restless that it is hard to sit still: 0 = Not at all Becoming easily annoyed or irritable: 0 = Not at all Feeling afraid as if something awful might happen: 0 = Not at all Total MILLER-7 score (0-4 normal; 5-9 mild; 10-14 moderate; 15-21 severe): 3 Source: Developed by Drs. Margarito Montes, Paula Hyman, Esau Cortes and colleagues, with an educational mckay from [employer]. MILLER-7 Assessment Billing MILLER-7 Assessment Tool: MILLER-7 Assessment 36211 Review of Systems Const All systems reviewed & are unremarkable except as noted in HPI and below Card Denies chest pain at rest, Denies chest pain with activity, Denies edema, Denies irregular heart rhythm, Denies claudication, Denies dyspnea, Denies dyspnea on exertion, Denies orthopnea, Denies paroxysmal nocturnal dyspnea and Denies slow heart rate Resp Denies cough, Denies dyspnea and Denies dyspnea on exertion GI Denies abdominal pain, Denies change in bowel habits, Denies excessive flatus, Denies nausea and Denies vomiting Denies urinary incontinence, Denies urinary hesitancy and Denies urinary urgency Physical exam (Primary Care) Vital Signs: Last Vital Signs BP 132/80 12/28/24 14:02 BMI result Body Mass Index 38.3 BMI Assessment/Plan discussion: High BMI High, discussed plan: lifestyle, weight reduction, dietary and physical activity Tobacco/Smoking Status: Tobacco use Status Tobacco use date assessed 12/28/24 12/28/24 14:05 Patient Tobacco Use Status Never used Tobacco 12/28/24 13:59 e-Cigarette/Vaping Use Never Used 12/28/24 13:59 PHQ-9: PHQ-9 Score PHQ-9: Total score 2 12/28/24 14:29 Depression Screening Interpretation: Negative Thrive Assessment: Date of Thrive Assessment Date Thrive assessed 12/27/24 12/28/24 13:59 Currently or been in a relationship where the following occur: No concerns reported HENMT Head: Yes normal to inspection, Yes normocephalic and Yes atraumatic Ears: external ears normal Eyes General: appearance normal, both eyes and all related structures Eyelids: Yes eyelids normal Conjunctivae: conjunctivae normal Neck Neck: Yes normal visual inspection and Yes supple Resp Effort & Inspection: normal respiratory effort Auscultation: clear to auscultation bilaterally Cardio Jugular venous distension: no JVD Rate: regular rate Rhythm: regular rhythm Heart sounds: S1 normal heart sound present and S2 normal heart sound present GI Inspection: Yes normal to inspection Palpation (GI): Soft to palpation and nontender Auscultation: normal bowel sounds Skin General skin exam: no rashes or lesions noted Neuro General: no focal motor deficits Extrem General: Yes full ROM Psych Appearance: grossly normal Results AMB Hemoglobin A1c AMB Hemoglobin A1c 11.0 % Last Edit by HAYLEE Power on 12/28/24 14: 10 Immunizations Boostrix Tdap 2.5 Lf unit-8 mcg-5 Lf/0.5 mL intramuscular syringe Performing Provider: Lidia Allan MD Performing Location: [facility] [place] [place] [facility] Administered by: HAYLEE Power on 12/28/24 14:30 Dose Route Admin Location Dispensed Lot Number Expiration Date NDC Manufacturing Accountant 0.5 mL IM Right Deltoid 0.5 mL [id number] 04/24/27 03511-091-10 [employer] VIS Given Date VIS Provided VIS Publication Date 12/28/24 Single Vaccine 24 Eligibility Eligibility Date Funding Source Not [facility] Eligible 12/28/24 Private Results Reviewed Results Reviewed: Laboratory Last Values Hgb A1c (Clinic) 11.0 % (4.0-6.0) H 12/28/24 13:56 Coding Level of Care Code Est Pt Prev Care 18-39y(16830) Diagnoses Physical exam Z00.00 Type 2 diabetes mellitus with hyperglycemia, without long-term current use of insulin E11.65 Diabetes mellitus type: type 2 Diabetes mellitus [facility] insulin use: without [facility] use Diabetes mellitus complication status: with hyperglycemia Acute lymphocytic leukemia in remission C91.01 Additional Codes MILLER-7 Assessment Billing - MILLER-7 Assessment Tool: MILLER-7 Assessment 67949 ([id number]) PHQ-9 - 47941 - PHQ-9 Billing: Yes ([id number]) Time Spent (min) 30 Assessment & Plan Assessment & Plan (1) Physical exam: Code(s): Z00.00 - Encounter for general adult medical examination without abnormal findings Category: Medical (2) Diabetes mellitus: Code(s): E11.9 - Type 2 diabetes mellitus without complications Category: Medical Qualifiers: Diabetes mellitus type: type 2 Diabetes mellitus [facility] insulin use: without superintendent marine oil terminal use Diabetes mellitus complication status: with hyperglycemia Qualified Code(s): E11.65 - Type 2 diabetes mellitus with hyperglycemia (3) Acute lymphocytic leukemia in remission: Comment: In remission since 2011 Code(s): C91.01 - Acute lymphoblastic leukemia, in remission Category: Medical Plan For this visit, the focus centered around the patient's diabetes management, ensuring transition back to [facility] for better glucose control. Her hyperlipidemia is managed with atorvastatin, and hypertension with lisinopril. Additionally, we confirmed an endocrinology consultation to further address her diabetes care. The annual Tdap vaccination was addressed. Emotional support for the patient's recent familial losses should be considered in subsequent visits. Regular follow-ups will be necessary to monitor her chronic conditions. Patient was informed and verbally consented to the use of an ambient scribe for clinic note documentation during this visit. During the visit, I discussed the importance of managing Type 2 Diabetes Mellitus, emphasizing regular glucose monitoring and lifestyle adjustments. Transition to [facility] was discussed, pending insurance approval, for better diabetes management. I addressed the patient's medication compliance and the importance of adhering to her treatment regimen, including atorvastatin and lisinopril. Awareness of the emotional impacts of her parents' passing and potential effects on her diabetes management was acknowledged. Follow-up with endocrinology was confirmed, and the patient's request for a tetanus booster was met. Orders: Orders AMB Hemoglobin A1c Today E11.65 - Type 2 diabetes mellitus with hyperglycemia Lipid Panel Today E78.5 - Hyperlipidemia, unspecified Microalbumin, Random (w Creat) Today R80.9 - Proteinuria, unspecified Comprehensive [place]. Panel Fast Today E11.65 - Type 2 diabetes mellitus with hyperglycemia TDaP Immunization Today Z23 - Encounter for immunization Referrals Endocrinology Referral E11.65 - Type 2 diabetes mellitus with hyperglycemia Medications: New dulaglutide (Trulicity) 0.75 mg (0.5 mL) subcut QWEEK 2 mL 0RF 4 weeks Patient Instructions: - Continue taking prescribed medications: atorvastatin and lisinopril. - Ensure regular blood glucose monitoring and diet adherence. - Confirm Trulicity prescription is processed with the pharmacy. - Attend endocrinology appointment on the . - Return if experiencing new symptoms or concerns. - Visit for any worsening of blood sugar control or medication issues. - Keep updated with vaccinations as scheduled.
[2024-12-28 14:02] VITALS: BP 132/80; BMI 38.3
== END 2024-12-28 14:26 | disposition home or self-care (01) ==
LOC: HO.HMCH 13:53
PROVIDERS: PCP Internal Medicine; Visit Provider Internal Medicine
DX: Z00.00 Encounter for general adult medical examination without abnormal findings (principal); E11.65 Type 2 diabetes mellitus with hyperglycemia; C91.01 Acute lymphoblastic leukemia, in remission; Z23 Encounter for immunization

== ENCOUNTER → 2024-12-28 13:52 | Outpatient (BNVA) | payer OTHER, SELFPAY | PROVIDERS: PCP Internal Medicine; Visit Provider Internal Medicine | DX: Z00.00 Encounter for general adult medical examination without abnormal findings (principal); C91.01 Acute lymphoblastic leukemia, in remission; E11.65 Type 2 diabetes mellitus with hyperglycemia; E78.5 Hyperlipidemia, unspecified; R80.9 Proteinuria, unspecified; Z23 Encounter for immunization | CPT/HCPCS: 83036; 90471; 90715; 96127; 99395 ==

== ENCOUNTER 2025-01-06 08:24 | Outpatient (REF) | payer OTHER, SELFPAY ==
[2025-01-06 10:03] LABS: Alanine Aminotransferase 102 U/L (0-31); Alkaline Phosphatase 88 U/L (39-117); Anion Gap 15 (12-20); Aspartate Amino Transferase 66 U/L (5-31); Bilirubin Total 0.7 mg/dL (0.0-1.0); Blood Urea Nitrogen 18 mg/dL (9-16); Calcium 9.2 mg/dL (8.4-10.2); Carbon Dioxide 22 mmol/L (22-29); Chloride 107 mmol/L (96-108); Cholesterol 126 mg/dL (<200); Estimated Glomerular Filt Rate > 60; Glucose Fasting 211 mg/dL (60-99); HDL Cholesterol 35 mg/dL (>40); LDL Cholesterol Calculated 72 mg/dL (<100); Potassium 3.8 mmol/L (3.3-5.1); Sodium 140 mmol/L (135-145); Total Protein 7.2 g/dL (6.5-8.0); Triglycerides 98 mg/dL (<150)
[2025-01-06 10:21] LABS: Creatinine Urine 204.64 mg/dL; Microalbum/Creatinine Ratio Ur 21.5 ug/mg cr (<30)
== END 2025-01-06 08:25 | disposition home or self-care (01) ==
LOC: HO.LAB 08:24
PROVIDERS: PCP Internal Medicine; Visit Provider Internal Medicine
DX: E11.65 Type 2 diabetes mellitus with hyperglycemia (principal); R80.9 Proteinuria, unspecified; E78.5 Hyperlipidemia, unspecified
CPT/HCPCS: 36415; 80053; 80061; 82043; 82570

== ENCOUNTER 2025-01-17 07:54 | Outpatient (AMB) | payer OTHER, SELFPAY ==
--- NOTE | 2025-01-17 06:57 | A.OFFVIS_ITS ---
Vital Signs 01/17/25 07:58 Height 5 ft 4 in Weight 224 lb 13.944 oz BMI 38.6 BP 120/78 Blood Pressure Location Rt brachial Position Sitting Pulse 96 Pulse Source Pulse Oximeter Pulse Oximetry (%) 99 Oxygen Delivery Method Room Air Intake Visit Reasons: T2DM Intake Note: Patient presents today to re-establish treatment for Type 2 Diabetes Mellitus: Last Diabetic eye exam was on: 08/18/2024, [facility] Last Podiatry exam was on: Patient does not see a Co Supervisor [employer] Most recent HbA1c: 11.0%, 12/28/2024 Random Glucose- 185 mg/dL, Today [facility] Required: Yes [facility] Language: Mountain [place] Guide Services: [facility] Present [facility] Name: [facility] [place] Allergies No Known Allergies Allergy (Verified 12/28/24 14:07) Medication List - Last Reconciled 01/17/25 by Tori Chowdhury NP albuterol sulfate 90 mcg/actuation (ProAir RespiClick) 2 inhalations inhalation Q6H PRN 30 days albuterol sulfate 2.5 mg (3 mL) inhalation Q4-6H PRN 30 days atorvastatin 10 mg PO BEDTIME 90 days blood sugar diagnostic (FreeStyle Lite Strips) Use 1 test strip once a day blood-glucose meter (FreeStyle Lite Meter kit) As directed dulaglutide (Trulicity) 1.5 mg (0.5 mL) subcut QWEEK 4 weeks lancets (FreeStyle Lancets) Use 1 lancet once a day lisinopril 2.5 mg PO DAILY 90 days metformin 1,000 mg PO BID 90 days multivitamin 1 tab PO DAILY nebulizers (AeroEclipse II Nebulizer) As directed Ventolin HFA 90 mcg/actuation (albuterol sulfate) 2 puffs inhalation Q6H PRN 30 days NS HPI Comments Details: [age] YO female who is seen in consultation for T2DM at the request of PCP. She was previously seen in Endocrine Clinic her last visit was 01/[address] Cintron. She recently had an elevated A1c and had been off Trulicity for a number of months. Her mother had and she was under a great deal of stress. Initially diagnosed with T2DM prox [id number] after having been on prednisone several months. 2021 MILLER antibodies less than 5, insulin auto antibodies less than 0.4 Was initially started on treatment with metformin Current regimen: Trulicity 0.75 will be increasing to 1.5 this week Metformin 1000 bid Infrequently 4 tests on meter last two weeks avg 198 Reports low sugars: none Most recent A1C 11% on 12/28/2024, up a from prior 8.1% on 11/04/2023. Family history of T2DM: Mother, grandmother Has eyes checked yearly, last eye exam 07/2024 denies]etinopathy. Has neuropathy, symptoms: Numbness. Secondary to multiple episodes of chemotherapy, last foot exam today in the office, does not see podiatry Has nephropathy, on SUSAN. 01/06/2025 Microalbumin 44 01/06/2025 eGFR>60 Has HLD, on statin. Last LDL 72 measured on 01/06/2025 Denies CAD. Recent liver function tests were elevated. She has had prior elevation in liver function test and had an initial evaluation by GI several years ago but did not complete workup. Followed by heme/Onc for ALL in remission: seen in July Diet: She has met with the Hollie Nowak RD and feels like she has an understanding of what she needs to do Does 8000 steps per day has a treadmill Weight: Weight had increased off Trulicity Has had diabetes education., she has recently reviewed [place] [employer] website and Pakistani She was advised not to get while her glucose readings were elevated. She reports she has had multiple years of chemotherapy in his not been able to pursue . PENDING SALE TO [facility] Medical History Hyperlipidemia LDL goal <70 Diabetes mellitus Physical exam Transaminitis Mild intermittent asthma in adult without complication Skin lesion Elevated blood pressure reading Acute lymphocytic leukemia in remission Obesity, Class II, BMI 35-39.9, isolated Surgical History History of biopsy Family History (Updated 12/28/24 @ 14:15 by Lidia Allan MD) Mother HIV disease Father HIV disease Social History Housing: Apartment Alcohol intake: current Alcohol intake frequency: holidays/special occasions only Alcohol type: hard liquor Patient Tobacco Use Status: Never used Tobacco e-Cigarette/Vaping Use: Never Used Second Hand Smoke Exposure: No service: No Current occupational status: employed Current occupational exposures/hazards: No Sexual orientation: Straight/Heterosexual Gender identity: Female Cognitive needs: No Hearing needs: No Vision needs: No Physical Exam Vital Signs: Last Vital Signs Pulse 96 01/17/25 07:58 BP 120/78 01/17/25 07:58 Pulse Ox 99 01/17/25 07:58 Oxygen Delivery Method Room Air 01/17/25 07:58 BMI result Body Mass Index 38.6 Absence of Cushingoid features. Absence of acromegalic features. Neck exam reveals nl size thyroid about 15 gms. No thyroid nodules palpable. No carotid bruits present. Lungs CTA. Heart S1 S2, Reg R/R. No M/R/ G. Skin exam reveals absence of vitiligo or acanthosis nigricans. Abdominal exam reveals Soft NT/ND with NA BS. No organomegaly present. Const Other: Absence of Cushingoid features. Absence of acromegalic features. Neck exam reveals nl size thyroid about 15 gms. No thyroid nodules palpable. Heart S1 S2, Reg R/R. No M/R G. Skin exam reveals absence of vitiligo or acanthosis nigricans. NO edema Visual exam of foot performed. No ulcerations or open lesions. No inter digit maceration or fissuring. No onychomycosis, no callouses. Sensation intact to monofilament exam. Vibratory sensation is normal with 128 Hz tuning fork. Wide foot Neck Other: . Extrem Other: Visual exam of foot performed. No ulcerations or open lesions. No onchomycosis, no callouses.Pulses 2 + distally Sensation intact to monofilament exam. 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 She will increase Trulicity to 1.5 this week and continue metformin a 1000 mg twice daily. She is physically active and motivated to follow up balanced diet. Today we spent the bulk of the visit discussing the ramifications of uncontrolled diabetes. The patient had an opportunity to ask questions regarding treatment plan. The patient expressed understanding and agreement with the above treatment plan. The patient is aware they should contact our office by phone for worsening glucose readings or for any low blood sugars which may warrant a change in diabetes medication. Compliance is encouraged with medications and any followup testing/consults which may have been ordered. (2) Fatty liver: Code(s): K76.0 - Fatty (change of) liver, not elsewhere classified Plan: She has seen GI in the past but did not complete workup. Consult placed. SHe will have a us with elastography and liver fibrosis labs done before consult Orders: Orders Liver Fibrosis Pnl Today R74.01 - Elevation of levels of liver transaminase levels US abdomen goodwin w elastography Today R74.01 - Elevation of levels of liver transaminase levels Referrals Gastroenterology Referral R74.01 - Elevation of levels of liver transaminase levels Patient Instructions: The patient was counseled to achieve a target A1C of 7% (154 avg). Fasting blood sugars should be 90-130 in the morning and less than 180 two hours after meals. Reviewed the relationship between poor diabetic control and the development of complications. Coding Level of Care Code Est Pt Level 4 (76761) Complex EM visit Add On G2211 Diagnoses Type 2 diabetes mellitus with hyperglycemia, without long-term current use of insulin E11.65 Diabetes mellitus type: type 2 Diabetes mellitus senior care insulin use: without algebra tutor use Diabetes mellitus complication status: with hyperglycemia Fatty liver K76.0
[2025-01-17 07:58] VITALS: BP 120/78; PULSE 96; O2SAT 99; BMI 38.6
[2025-01-17 08:08] LABS: Glucose, Whole Blood 185 mg/dL (60-115)
== END 2025-01-17 09:54 | disposition home or self-care (01) ==
LOC: HO.ENCR 07:55
PROVIDERS: PCP Internal Medicine; Visit Provider Nurse Practitioner Adult Health
DX: E11.65 Type 2 diabetes mellitus with hyperglycemia (principal); K76.0 Fatty (change of) liver, not elsewhere classified
CPT/HCPCS: 99214; G2211

== ENCOUNTER → 2025-01-17 07:54 | Outpatient (BNVA) | payer OTHER, SELFPAY | PROVIDERS: PCP Internal Medicine; Visit Provider Nurse Practitioner Adult Health | DX: E11.65 Type 2 diabetes mellitus with hyperglycemia (principal); K76.0 Fatty (change of) liver, not elsewhere classified; Z79.85 Long-term (current) use of injectable non-insulin antidiabetic drugs; Z79.84 Long term (current) use of oral hypoglycemic drugs | CPT/HCPCS: 82947; 99212 ==

== ENCOUNTER 2025-05-17 10:57 | Outpatient (AMB) | payer OTHER, SELFPAY ==
[2025-05-17 11:11] VITALS: BP 120/78; PULSE 90; O2SAT 98; BMI 38.1
--- NOTE | 2025-05-17 11:11 | A.OFFPC_ITS ---
Vital Signs 05/17/25 11:11 Height 5 ft 4 in Weight 222 lb BMI 38.1 BP 120/78 Blood Pressure Location Lt brachial Position Sitting Pulse 90 Pulse Source Pulse Oximeter Pulse Oximetry (%) 98 Oxygen Delivery Method Room Air Intake Visit Reasons: dm Dulser Required: No Accompanied by: Self / Same As Patient Allergies No Known Allergies Allergy (Verified 05/17/25 11:36) Medication List - Last Reconciled 05/17/25 by Lidia Allan MD albuterol sulfate 90 mcg/actuation (ProAir RespiClick) 2 inhalations inhalation Q6H PRN 30 days albuterol sulfate 2.5 mg (3 mL) inhalation Q4-6H PRN 30 days atorvastatin 10 mg PO BEDTIME 90 days blood sugar diagnostic (FreeStyle Lite Strips) Use 1 test strip once a day blood-glucose meter (FreeStyle Lite Meter kit) As directed dulaglutide (Trulicity) 1.5 mg (0.5 mL) subcut QWEEK 4 weeks lancets (FreeStyle Lancets) Use 1 lancet once a day lisinopril 2.5 mg PO DAILY 90 days metformin 1,000 mg PO BID 90 days multivitamin 1 tab PO DAILY nebulizers (AeroEclipse II Nebulizer) As directed Ventolin HFA 90 mcg/actuation (albuterol sulfate) 2 puffs inhalation Q6H PRN 30 days NS Tobacco use date assessed: 05/17/25 Dental Screening Dental Screen Date: 05/17/25 Did you have a dental visit in the last 12 months?: Yes Did you have a dental problem in the last 6 months where you did not have access to dental care?: No Was dental information given to patient?: Patient has dentist HPI HPI Comments History of Present Illness Details The patient is a 40-year-old female presenting with follow-up on diabetes management, leukemia remission, and cardiovascular risk factors. Diabetes mellitus has been managed with Trulicity once a week, and the recent hemoglobin A1c level is 6.9%, indicating good glycemic control. The patient uses a Freestyle glucose monitoring system and requires lancets and strips, which are to be sent to her pharmacy. The patient was diagnosed with acute lymphocytic leukemia in 2011, which is currently in remission. She has not attended annual follow-ups due to logistical issues but remains asymptomatic. Hyperlipidemia is being managed with atorvastatin, and recent LDL cholesterol levels were at 72 mg/dL, which is within the target range. Hypertension is well-controlled with lisinopril, and the patient reports no issues with blood pressure management. [facility] Medical History Hyperlipidemia LDL goal <70 Diabetes mellitus Physical exam Transaminitis Mild intermittent asthma in adult without complication Skin lesion Elevated blood pressure reading Acute lymphocytic leukemia in remission Obesity, Class II, BMI 35-39.9, isolated Surgical History History of biopsy Family History Mother HIV disease Father HIV disease Social History Housing: Apartment Alcohol intake: current Alcohol intake frequency: holidays/special occasions only Alcohol type: hard liquor Patient Tobacco Use Status: Never used Tobacco e-Cigarette/Vaping Use: Never Used Second Hand Smoke Exposure: No service: No Current occupational status: employed Current occupational exposures/hazards: No Sexual orientation: Straight/Heterosexual Gender identity: Female Cognitive needs: No Hearing needs: No Vision needs: No Questionnaire Thrive Questionnaire Date Thrive assessed: 12/27/24 I am a: Patient What is your living situation today?: I have a steady place to live Within the past 12 months, did the food you bought not last and you didn't have the money to get more?: Never true Within the past 12 months, did you worry whether your food would run out before you got money to buy more?: Never true Do you have trouble paying for medicines?: No Do you have trouble getting transportation to medical appointments?: I choose not to answer this question Do you have trouble paying your heating and electricity bill?: No Do you have trouble taking care of your child, family member or friend?: I choose not to answer this question Do you have trouble with day-to-day activities such as bathing, preparing meals, shopping, managing finances, etc.?: No Are you currently unemployed and looking for a job?: No Are you interested in more education?: No Please select the resources that you would like help with: None Currently or been in a relationship where the following occur: No concerns reported THRIVE Score: 0 AUDIT C Alcohol Use Questionnaire (AUDIT-C) 1. How often do you have a drink containing alcohol?: Monthly or less 2. How many drinks containing alcohol do you have on a typical day when you are drinking?: 1 or 2 3. How often do you have six or more drinks on one occasion?: Never Total Score: 1 Score Reviewed/Action Taken: No MILLER-7 AMB Questionnaire MILLER-7 Date MILLER - 7 assessed: 12/28/24 Source: Developed by Drs. Margarito Montes, Paula Hyman, Esau Cortes and colleagues, with an educational mckay from [employer]. Review of Systems Const All systems reviewed & are unremarkable except as noted in HPI and below Card Denies chest pain at rest, Denies chest pain with activity, Denies edema, Denies irregular heart rhythm, Denies claudication, Denies dyspnea, Denies dyspnea on exertion, Denies orthopnea, Denies paroxysmal nocturnal dyspnea and Denies slow heart rate Resp Denies cough, Denies dyspnea and Denies dyspnea on exertion GI Denies abdominal pain, Denies change in bowel habits, Denies excessive flatus, Denies nausea and Denies vomiting Skin/Breast Denies bleeding lesions, Denies changing lesions and Denies rash Neuro Denies lack of coordination Physical exam (Primary Care) Vital Signs: Last Vital Signs Pulse 90 05/17/25 11:11 BP 120/78 05/17/25 11:11 Pulse Ox 98 05/17/25 11:11 Oxygen Delivery Method Room Air 05/17/25 11:11 BMI result Body Mass Index 38.1 Tobacco/Smoking Status: Tobacco use Status Tobacco use date assessed 05/17/25 05/17/25 11:14 Patient Tobacco Use Status Never used Tobacco 05/17/25 11:14 e-Cigarette/Vaping Use Never Used 05/17/25 11:14 Thrive Assessment: Date of Thrive Assessment Date Thrive assessed 12/27/24 05/17/25 11:14 Currently or been in a relationship where the following occur: No concerns reported Resp Effort & Inspection: normal respiratory effort Auscultation: clear to auscultation bilaterally Cardio Jugular venous distension: no JVD Rate: regular rate Rhythm: regular rhythm Heart sounds: S1 normal heart sound present and S2 normal heart sound present Extrem General: Yes full ROM Results AMB Hemoglobin A1c AMB Hemoglobin A1c 6.9 % Last Edit by HAYLEE Merrill on 05/17/25 11 :41 Coding Level of Care Code Est Pt Level 4 (97976) Complex EM visit Add On G2211 Diagnoses Type 2 diabetes mellitus with hyperglycemia, without long-term current use of insulin E11.65 Diabetes mellitus type: type 2 Diabetes mellitus intermediate teacher insulin use: without intermediate teacher use Diabetes mellitus complication status: with hyperglycemia Essential hypertension I10 Hyperlipidemia LDL goal <70 E78.5 Acute lymphocytic leukemia in remission C91.01 Time Spent (min) 23 Assessment & Plan Assessment & Plan (1) Diabetes mellitus: Code(s): E11.9 - Type 2 diabetes mellitus without complications Category: Medical Qualifiers: Diabetes mellitus type: type 2 Diabetes mellitus intermediate teacher insulin use: without intermediate teacher use Diabetes mellitus complication status: with hyperglycemia Qualified Code(s): E11.65 - Type 2 diabetes mellitus with hyperglycemia (2) Essential hypertension: Code(s): I10 - Essential (primary) hypertension Category: Medical (3) Hyperlipidemia LDL goal <70: Code(s): E78.5 - Hyperlipidemia, unspecified Category: Medical (4) Acute lymphocytic leukemia in remission: Comment: In remission since 2012 Code(s): C91.01 - Acute lymphoblastic leukemia, in remission Category: Medical Plan Plan Patient was informed and verbally consented to the use of an ambient scribe for clinic note documentation during this visit. 1. Type 2 diabetes mellitus without complications E11.9 HCC 19 The patient's diabetes is currently managed with Trulicity, and her A1c level is well-controlled at 6.9%. She uses a [employer] glucose monitoring system and requires lancets and strips, which will be sent to her pharmacy. 2. Acute lymphoblastic leukemia, in remission C91.01 HCC 8 The patient was diagnosed with acute lymphocytic leukemia in 2012, which is currently in remission. She has not attended annual follow-ups due to logistical issues but remains asymptomatic. 3. Hyperlipidemia, unspecified E78.5 Hyperlipidemia is managed with atorvastatin, and recent LDL cholesterol levels were at 72 mg/dL, which is within the target range. 4. Essential (primary) hypertension I10 Hypertension is well-controlled with lisinopril, and the patient reports no issues with blood pressure management. Orders: Orders Lipid Panel 4 Months E78.5 - Hyperlipidemia, unspecified Microalbumin, Random (w Creat) 4 Months R80.9 - Proteinuria, unspecified Complete Blood Count Auto Diff 4 Months C91.01 - Acute lymphoblastic leukemia, in remission, D64.9 - Anemia, unspecified AMB Hemoglobin A1c Today Z13.9 - Encounter for screening, unspecified Comprehensive Yeso. Panel Fast 4 Months E11.65 - Type 2 diabetes mellitus with hyperglycemia Medications: Refilled blood sugar diagnostic (FreeStyle Lite Strips) Use 1 test strip once a day 50 ea 6RF E11.9 - Type 2 diabetes mellitus without complications lancets (FreeStyle Lancets) Use 1 lancet once a day 100 ea 3RF E11.9 - Type 2 diabetes mellitus without complications
== END 2025-05-17 11:48 | disposition home or self-care (01) ==
LOC: HO.HMCH 10:57
PROVIDERS: PCP Internal Medicine; Visit Provider Internal Medicine
DX: E11.65 Type 2 diabetes mellitus with hyperglycemia (principal); I10 Essential (primary) hypertension; E78.5 Hyperlipidemia, unspecified; C91.01 Acute lymphoblastic leukemia, in remission; Z13.9 Encounter for screening, unspecified

== ENCOUNTER → 2025-05-17 10:57 | Outpatient (BNVA) | payer OTHER, SELFPAY | PROVIDERS: PCP Internal Medicine; Visit Provider Internal Medicine | DX: E11.65 Type 2 diabetes mellitus with hyperglycemia (principal); E78.5 Hyperlipidemia, unspecified; I10 Essential (primary) hypertension; C91.01 Acute lymphoblastic leukemia, in remission; R80.9 Proteinuria, unspecified | CPT/HCPCS: 83036; 99212 ==